=== PATIENT | male | born 1970 ===

== ENCOUNTER 2019-12-22 12:01 | Emergency (ER) | payer SELFPAY ==
[2019-12-22 13:09] VITALS: BP 116/71
[2019-12-22 13:48] LABS: Bilirubin,Urine NEG (Negative); Blood,Urine NEG (Negative); Color,Urine Yellow (Yellow); Mucus,Urine FEW /HPF; Protein,Urine <15 mg/dL mg/dL (Negative); WBC,Urine < 1.0 /HPF (0.0-6.0)
== END 2019-12-22 18:22 | disposition left against medical advice (07) ==
LOC: ED 12:01
DX: R10.32 Left lower quadrant pain (principal); Z53.21 Procedure and treatment not carried out due to patient leaving prior to being seen by health care provider
CPT/HCPCS: 81001